=== PATIENT | female | born 1985 | race Caucasian/White ===

== ENCOUNTER 2020-09-14 07:01 | Emergency (ER) | payer OTHER ==
[~2020-09-14] VITALS: Ht 167.6 cm; Wt 56.0 kg
[2020-09-14 09:24] LABS: CHLORIDE 107 mEq/L (98-107)
[2020-09-14 09:28] LABS: HCG SCREEN NEGATIVE
[2020-09-14 09:38] LABS: BASOPHILS % 0.2 % (0.0-2.0); EOSINOPHILS % 0.3 % (0.0-5.0); HEMATOCRIT. 43.6 % (36.0-48.0); LYMPHOCYTES % 11.9 % (20.0-50.0); MEAN CORPUSCULAR HEMOGLOBIN 27.4 pg (28.0-32.0); MEAN CORPUSCULAR VOLUME 85.2 fL (81.0-99.0); MEAN PLATELET VOLUME 10.3 fl (7.4-10.4); MONOCYTES % 7.5 % (2.0-8.0); NEUTROPHILS % 80.1 % (40.0-76.0); PLATELET 212 x1000/uL (130-400); RED BLOOD CELL COUNT 5.12 mill/uL (4.2-5.4); RED CELL DISTRIBUTION WIDTH 13.6 % (11.6-14.6)
[2020-09-14 10:00] VITALS: BP 132/88
== END 2020-09-14 11:02 | disposition home or self-care (01) ==
LOC: ER 07:01
DX: F43.0 Acute stress reaction (principal); R03.0 Elevated blood-pressure reading, without diagnosis of hypertension; Z63.0 Problems in relationship with spouse or partner
CPT/HCPCS: 36415; 71045; 80053; 81025; 84443; 84703; 85025; 93005; 99285